=== PATIENT | male | born 1975 | race Caucasian/White ===

== ENCOUNTER 2018-12-07 10:55 | Observation (INO) ==
[2018-12-07 11:41] LABS: BASO# 0.06 X1000 (0.0-0.2); BASO% 0.4 % (0.0-0.8); EOS# 0.74 X1000 (0.0-0.7); EOS% 5.3 % (0.0-10.0); HEMATOCRIT 45.3 % (42.0-52.0); HEMOGLOBIN 15.4 g/dL (14.0-18.0); IMM GRAN# 0.06 X1000 (0.0-0.04); IMM GRAN% 0.4 % (0.0-0.5); LYMPH# 2.02 X1000 (1.2-3.4); LYMPH% 14.5 % (20.5-51.1); MCH 30.9 PG (27-31); MONO# 1.35 X1000 (0.11-0.59); MONO% 9.7 % (1.7-9.3); MPV 9.3 FL (7.4-10.4); NEUT% 69.7 % (42.2-75.2); PLT 188 X1000 (130-400); RBC 4.98 XMIL (4.7-6.1); RDW 13.5 % (11.5-14.5); WBC 13.93 X1000 (4.8-10.8)
[2018-12-07 12:05] LABS: AGAP 11; ALBUMIN 3.6 g/dL (3.5-5.0); ALKALINE PHOSPHATASE 95 U/L (32-122); BUN 13 mg/dL (8-22); CALCIUM 8.5 mg/dL (8.8-10.2); CHLORIDE 106 mmol/L (98-107); COSMO 280; CREATININE 1.1 mg/dL (0.7-1.2); ESTIMATED GFR > 60; GLUCOSE 109 mg/dL (70-104); GOT 11 U/L (10-34); GPT 16 U/L (10-44); SODIUM 140 mmol/L (136-145); TCO2 23 mmol/L (25-35)
--- NOTE | 2018-12-07 13:18 | Extremity Venous Study ---
EXAM: Venous U/S Left Leg HISTORY: pain swelling tibial landry TECHNIQUE: Left lower extremity venous Doppler ultrasound COMPARISON: None. FINDINGS: There is thrombus within the superficial femoral vein, popliteal vein, and posterior tibial vein. IMPRESSION: This study is positive for deep venous thrombosis. Electronically signed by Ty Thorpe 12/07/2018 1:16 PM
[2018-12-07] MEDS ORDERED: PRINIVIL PO ONE (15:11)
[2018-12-07] MEDS: LOVENOX SUBQ SCH (18:15)
--- NOTE | 2018-12-07 18:58 | HISTORY AND PHYSICAL ---
CHIEF COMPLAINT: Swelling, left leg. HISTORY OF PRESENT ILLNESS: Patient is a 43-year-old male who notes that he has been sitting around more recently. He has experienced the of a grandson around 5 or 6 months old, and they have been in mourning. He notes that he awoke today with increased pain in his left lower extremity and increased swelling, and therefore came to the ER where he was subsequently diagnosed with a deep venous thrombosis. PAST MEDICAL HISTORY: He has no current active medical problems. He did have a landry placed in his left leg after falling off, I believe, a roof. Since then, he has had no real issues with it. ALLERGIES: No known drug allergies. MEDICATIONS: He is on no current prescription medications. REVIEW OF SYSTEMS: As noted. He is having pain in his left lower extremity swelling in his left lower extremity. Denies any chest pain, palpitations. Denies any fevers or chills. Denies any dysuria, frequency, urgency, hesitancy, polyuria or polydipsia. Denies any skin rashes, weight loss, weight gain. FAMILY HISTORY: Noncontributory. LABS: WBC 13. D-dimer elevated. Ultrasound demonstrated left lower extremity deep venous thrombosis. ASSESSMENT: Left lower extremity deep venous thrombosis. PLAN: We will admit patient to the hospital, place him on Lovenox tonight, and will ascertain whether Eliquis or Xarelto are affordable. If so, hopefully he can be discharged home tomorrow. cc: Tod Hall MD
[2018-12-07] MEDS ORDERED: TYLENOL PO PRN (23:07)
[2018-12-08] MEDS: LOVENOX SUBQ SCH (04:10)
[2018-12-08 07:42] LABS: HEMATOCRIT 47.6 % (42.0-52.0); HEMOGLOBIN 15.7 g/dL (14.0-18.0); MCH 30.3 PG (27-31); MCV 91.9 FL (81-99); MPV 10.4 FL (7.4-10.4); RBC 5.18 XMIL (4.7-6.1); RDW 13.4 % (11.5-14.5); WBC 11.47 X1000 (4.8-10.8)
[2018-12-08 07:55] LABS: AGAP 9; ALBUMIN 3.4 g/dL (3.5-5.0); ALKALINE PHOSPHATASE 98 U/L (32-122); BUN 12 mg/dL (8-22); CALCIUM 8.1 mg/dL (8.8-10.2); CHLORIDE 104 mmol/L (98-107); COSMO 278; ESTIMATED GFR > 60; GLUCOSE 115 mg/dL (70-104); GOT 12 U/L (10-34); GPT 16 U/L (10-44); SODIUM 139 mmol/L (136-145); TCO2 26 mmol/L (25-35); TOTAL PROTEIN 6.9 g/dL (6.3-8.3)
[2018-12-08 14:52] VITALS: BP 121/67
[2018-12-08] MEDS ORDERED: ELIQUIS PO SCH (17:00)
[2018-12-08] MEDS ORDERED: LOVENOX SUBQ ONE (19:00)
--- NOTE | 2018-12-09 11:10 | PROGRESS NOTE ---
ADMISSION DATE: 12/07/2018 DISCHARGE DATE: 12/08/2018 PROBLEM LIST: The patient came in, he is still having pain in his left calf, worse when he sits up, worse when he walks. No chest pain. The rest of his lab work is unremarkable. His left leg is swollen, but it is not pitting edema. Plan is to discharge on Eliquis once we can get insurance approval. He has also been started on lisinopril. In any case, we are trying to get this coordinated and anticipate discharge today. Full details per Shanna Ruiz. cc: Chuy Ndiaye MD
--- NOTE | 2018-12-09 22:15 | DISCHARGE SUMMARY ---
ADMISSION DATE: 12/07/2018 DISCHARGE DATE: 12/08/2018 CONSULTATIONS: None. PERTINENT PROCEDURES: Left lower extremity Doppler showed thrombus within the superficial femoral vein, popliteal vein and posterior tibial vein. HOSPITAL COURSE: Mr. Mendoza is a 43-year-old gentleman who really has no past medical history except for landry placement after falling off a roof, who noted that he had been sitting around more recently. He experienced the of a grandson who was around 5 or 6 months old and has been mourning. On the day of his admission he woke up with increased pain to his left lower extremity, increased swelling. He came to the ED to be checked out and was diagnosed with a DVT. He was started on full dose Lovenox and transitioned to p.o. Eliquis after insurance approval. He was also started on lisinopril for high blood pressure. He is to obtain a followup with a primary care provider and return to the ED for any worsening of symptoms. VITAL SIGNS AT THE TIME OF DISCHARGE: Temperature is 97.8 degrees, heart rate 72, respirations 18, blood pressure 121/67, O2 is 98% on room air. DISCHARGE DIET: Healthy heart. DISCHARGE MEDICATIONS: 1. Clonidine 0.1 mg p.o. p.r.n. for systolic blood pressure greater than 180 or diastolic blood pressure greater than 100 p.r.n. 2. Eliquis 10 mg p.o. b.i.d. for the first 7 days, then 5 mg p.o. b.i.d. with 1 refill. 3. Hydrochlorothiazide 25 mg p.o. daily. 4. Shirley 1 each p.o. q.6 hours p.r.n. FOLLOWUP: Mr. Mendoza is being discharged back home with self care. He is to take his Eliquis as prescribed. He is to follow up with PCP provided to the list to him. He was given the number to our physician referral line. He can return to the ED or call 911 for any worsening of symptoms. Dictated by COLEEN Casas for Chuy Ndiaye MD cc: Chuy Ndiaye MD
== END 2018-12-08 15:58 | disposition home or self-care (01) ==
LOC: P.ED 10:55 → SUATTDRO 10:56 → INTOOBSV 10:56 → P.MEDSURG 10:56
PROVIDERS: ATTEND Internal Medicine
CPT/HCPCS: 80053; 83735; 84443; 85025; 85027; 85379; 93971; 99285; A9270; J1650